=== PATIENT | female | born 1965 | race Asian ===

== ENCOUNTER 2016-10-26 15:14 | Outpatient (CLI) | payer OTHER, MEDICARE | END 2016-10-26 15:15 | disposition home or self-care (01) | DX: F31.9 Bipolar disorder, unspecified (principal); E11.9 Type 2 diabetes mellitus without complications ==

== ENCOUNTER 2016-12-28 15:12 | Outpatient (CLI) | payer OTHER, MEDICARE | END 2016-12-28 15:13 | disposition home or self-care (01) | DX: N18.9 Chronic kidney disease, unspecified (principal); I10 Essential (primary) hypertension ==

== ENCOUNTER 2017-10-07 08:00 | Outpatient (CLI) | payer OTHER, MEDICARE ==
[2017-10-07 18:54] LABS: CALCIUM 9.3 mg/dL (8.5-10.3); CREATININE 1.7 mg/dL (0.4-1.0); HEMOGLOBIN A1C 0.88 g/dL; POTASSIUM 4.3 mmol/L (3.5-5.0)
== END 2017-10-07 08:01 | disposition home or self-care (01) ==
LOC: LAB.S 08:00
PROVIDERS: ATTEND Family Medicine
DX: N18.9 Chronic kidney disease, unspecified (principal); I10 Essential (primary) hypertension; E11.9 Type 2 diabetes mellitus without complications
CPT/HCPCS: 36415; 80048; 83036

== ENCOUNTER 2018-05-07 12:42 | Outpatient (CLI) | payer MEDICARE ==
[2018-05-07 17:47] LABS: CREATININE 1.1 mg/dL (0.4-1.0)
[2018-05-07 17:49] LABS: CALCIUM 9.4 mg/dL (8.5-10.3)
[2018-05-07 18:26] LABS: HB2 TOTAL 14.9 g/dL; HEMOGLOBIN A1C 1.32 g/dL; HEMOGLOBIN A1C % 10.3 % (4.6-6.2)
== END 2018-05-07 12:43 | disposition home or self-care (01) ==
LOC: LAB.F 12:42
PROVIDERS: ATTEND Family Medicine
DX: E11.9 Type 2 diabetes mellitus without complications (principal); N18.9 Chronic kidney disease, unspecified; I10 Essential (primary) hypertension
CPT/HCPCS: 36415; 80048; 83036

== ENCOUNTER 2018-08-02 01:14 | Emergency (ER) | payer MEDICARE ==
--- NOTE | 2018-08-02 01:48 | ED Physician Documentation ---
PD HPI ABD PAIN - Stated complaint Stated Complaint: STOMACH PX - Chief complaint Chief Complaint: Abd Pain - History obtained from History obtained from: Patient - History of Present Illness Timing - onset: How many weeks ago (1) Timing - details: Gradual onset, Waxing and waning Pain level now: 4 Quality: Pain Location: Epigastric, LUQ Improved by: Other (no ameliorating factors) Worsened by: Other (no exacerbating factors) Associated symptoms: Nausea, Diarrhea. No: Fever, Vomiting Similar symptoms before: Has not had sx before Recently seen: Not recently seen Review of Systems Constitutional: reports: Fatigue. denies: Fever Cardiac: reports: Reviewed and negative Respiratory: reports: Reviewed and negative GI: reports: Abdominal Pain, Abdominal Swelling, Nausea, Diarrhea. denies: Vomiting : denies: Dysuria, Frequency PD PAST MEDICAL HISTORY - Past Medical History Past Medical History: Yes - Past Surgical History Past Surgical History: No - Present Medications Home Medications: Ambulatory Orders Medication Instructions Recorded Confirmed Diphenoxylate/Atropine [Lomotil] 1 each PO QID PRN #14 tablet 08/02/18 Hydrocodone/Acetaminophen 1 - 2 each PO Q6HR PRN #10 tablet 08/02/18 [Hydrocodon-Acetaminophen 5-325] Omeprazole 40 mg PO QDBREAKFAST #30 capsule. 08/02/18 - Allergies Allergies/Adverse Reactions: Allergies Allergy/AdvReac Type Severity Reaction Status Date / Time codeine Allergy Severe swelling Verified 08/02/18 01:30 rash - Living Situation Living Situation: reports: With spouse/s.o. Living Arrangement: reports: At home - Social History Does the pt smoke?: No PD ED PE NORMAL - General General: Alert and oriented X 3, No acute distress, Well developed/nourished - HEENT HEENT: Moist mucous membranes - Cardiac Cardiac: RRR, No murmur - Respiratory Respiratory: No respiratory distress, Clear bilaterally - Abdomen Abdomen: Soft, Non distended, Other (mild tenderness epigastrium, LLQ, RUQ) Results - Vitals Vitals: Vital Signs - 24 hr 08/02/18 08/02/18 01:18 04:38 Temperature 36.2 C L Heart Rate 77 76 Respiratory 17 16 Rate Blood Pressure 152/93 H 119/64 O2 Saturation 100 100 Oxygen O2 Source Room air - EKG (time done) No standard instances Rate: Rate (enter#) (76) Rhythm: NSR [place]: Normal Intervals: Normal DC QRS: Normal Ischemia: Normal ST segments, T wave inversion (V2-V3) - Labs Labs: Laboratory Tests 08/02/18 08/02/18 08/02/18 02:46 02:55 02:55 WBC 11.9 H RBC 4.81 Hgb 14.1 Hct 42.5 MCV 88.5 MCH 29.3 MCHC 33.1 RDW 13.5 Plt Count 294 MPV 8.6 Neut # (Auto) 7.5 H Lymph # (Auto) 3.2 [place] # (Auto) 1.0 Eos # (Auto) 0.2 Baso # (Auto) 0.1 Absolute Nucleated RBC 0.01 Nucleated RBC % 0.1 Sodium 138 Potassium 4.0 Chloride 103 Carbon Dioxide 24 Anion Gap 11.0 BUN 17 Creatinine 1.1 H Estimated GFR (MDRD) 52 L Glucose 107 H Calcium 9.2 Total Bilirubin 0.4 AST 30 ALT 33 Alkaline Phosphatase 75 Total Protein 8.5 H Albumin 4.3 Globulin 4.2 Albumin/Globulin Ratio 1.0 Lipase 99 H Urine Color YELLOW Urine Clarity CLEAR Urine pH 6.0 Ur Specific [place] <=1.005 Urine Protein NEGATIVE Urine Glucose (UA) NEGATIVE Urine Ketones NEGATIVE Urine Occult Blood NEGATIVE Urine Nitrite NEGATIVE Urine Bilirubin NEGATIVE Urine Urobilinogen 0.2 (NORMAL) Ur Leukocyte Esterase NEGATIVE Ur Microscopic Review NOT INDICATED Urine Culture Comments NOT INDICATED - Rads (name of study) CT A/P Radiology: Prelim report reviewed, See rad report PD MEDICAL DECISION MAKING - ED course Complexity details: reviewed results, re-evaluated patient, considered differential, d/w patient Departure - Departure Disposition: 01 Home, Self Care Clinical Impression: Diarrhea, Abdominal pain Condition: Good Instructions: ED Abdominal Pain Unkn Cause, ED Diarrhea Viral Prescriptions: Hydrocodone/Acetaminophen [Hydrocodon-Acetaminophen 5-325] 1 - 2 each PO Q6HR PRN #10 tablet PRN Reason: Pain Diphenoxylate/Atropine [Lomotil] 1 each PO QID PRN #14 tablet PRN Reason: Diarrhea Omeprazole 40 mg PO QDBREAKFAST #30 capsule. Discharge Date/Time: 08/02/18 05:27
[2018-08-02] MEDS ORDERED: SODIUM CHLORIDE 0.9% 1,000 ML IV STA (02:29)
[2018-08-02] MEDS ORDERED: KETOROLAC 30 MG/ML VIAL IVP STA (02:29)
[2018-08-02 03:11] LABS: BASOPHILS # (AUTO) 0.1 10^3/uL (0.0-0.1); BASOPHILS % (AUTO) 0.6 %; EOSINOPHILS # (AUTO) 0.2 10^3/uL (0.0-0.7); EOSINOPHILS % (AUTO) 1.7 %; HGB - HEMOGLOBIN 14.1 g/dL (12.0-16.0); LYMPHOCYTES # (AUTO) 3.2 10^3/uL (1.5-3.5); LYMPHOCYTES % (AUTO) 27.2 %; MEAN CORPUSCULAR HEMOGLOBIN 29.3 pg (27.0-31.0); MEAN CORPUSCULAR HGB CONC 33.1 g/dL (32.0-36.0); MEAN CORPUSCULAR VOLUME 88.5 fL (81.0-99.0); MEAN PLATELET VOLUME 8.6 fL (7.9-10.8); NEUTROPHILS # (AUTO) 7.5 10^3/uL (1.5-6.6); NEUTROPHILS % (AUTO) 62.5 %; PLT - PLATELET COUNT 294 10^3/uL (130-450); RED BLOOD COUNT 4.81 10^6/uL (4.20-5.40); RED CELL DISTRIBUTION WIDTH 13.5 % (12.0-15.0); WHITE BLOOD COUNT 11.9 x10^3/uL (4.8-10.8)
[2018-08-02 03:19] LABS: BILIRUBIN,URINE NEGATIVE (NEGATIVE); GLUCOSE, URINE (UA) NEGATIVE (NEGATIVE); KETONES,URINE (UA) NEGATIVE (NEGATIVE); LEUKOCYTE ESTERASE, URINE NEGATIVE (NEGATIVE); NITRITE,URINE NEGATIVE (NEGATIVE); OCCULT BLOOD,URINE NEGATIVE (NEGATIVE); PROTEIN,URINE NEGATIVE (NEGATIVE); UROBILINOGEN,URINE 0.2 (NORMAL) E.U./dL (NORMAL)
[2018-08-02 03:21] LABS: ALBUMIN 4.3 g/dL (3.2-5.5); BILIRUBIN,TOTAL 0.4 mg/dL (0.2-1.0); CALCIUM 9.2 mg/dL (8.5-10.3); CREATININE 1.1 mg/dL (0.4-1.0); TOTAL PROTEIN 8.5 g/dL (6.7-8.2)
[2018-08-02 03:34] LABS: CLARITY,URINE CLEAR (CLEAR)
[2018-08-02] MEDS ORDERED: IOPAMIDOL-300 100 ML VIAL ONE (03:41)
[2018-08-02] MEDS ORDERED: IOPAMIDOL-300 100 ML VIAL IVP ONE (03:58)
--- NOTE | 2018-08-02 04:20 | CT Report ---
Reason: abd. pain Procedure Date: 08/02/2018 Accession Number: [id number] / [id number] Procedure: CT - Abdomen/Pelvis W/ CPT Code: FULL RESULT: EXAM: CT ABDOMEN AND PELVIS EXAM DATE: 08/02/2018 04:09 AM. CLINICAL HISTORY: Abdominal pain. COMPARISONS: None. TECHNIQUE: Routine helical CT imaging was performed through the abdomen and pelvis. IV contrast: ISOVUE 300 100mL. Enteric contrast: No. Reconstructions: Coronal and sagittal. In accordance with CT protocol optimization, one or more of the following dose reduction techniques were utilized for this exam: automated exposure control, adjustment of mA and/or KV based on patient size, or use of iterative reconstructive technique. FINDINGS: Lung Bases: Unremarkable. Liver: There is mild diffuse fatty infiltration of the liver. Gallbladder/Bile Ducts: Unremarkable. Spleen: Normal. Pancreas: Normal. Adrenal Glands: Normal. Kidneys: Normal. No masses or hydronephrosis. Peritoneal Cavity/Bowel: Normal. No free fluid, free air or adenopathy. No masses or acute inflammatory process. The stomach is unremarkable. There is no distention of the small bowel. Pelvic Organs: Normal. The bladder and visualized pelvic organs are within normal limits. Vasculature: No aneurysms or other significant abnormality. Bones: No significant abnormality. Other: The uterus is anteverted. There are no adnexal masses. There are no inflammatory changes of the colon. The appendix is normal. IMPRESSION: 1. Negative CT scan abdomen and pelvis. No findings to explain clinical symptoms. No evidence for renal calculi. No evidence for appendicitis. [facility]
[2018-08-02 04:39] VITALS: BP 119/64
[2018-08-02] MEDS ORDERED: DIPHENOX/ATROPINE 2.5/0.025 MG TABLET PO STA (05:02)
[2018-08-02] MEDS ORDERED: PANTOPRAZOLE 40 MG TABLET PO STA (05:03)
== END 2018-08-02 05:27 | disposition home or self-care (01) ==
LOC: ED 01:14
DX: R19.7 Diarrhea, unspecified (principal); R10.13 Epigastric pain; R10.32 Left lower quadrant pain; R10.11 Right upper quadrant pain
CPT/HCPCS: 74177; 80053; 81003; 83690; 85025; 93005; 96374; 99283; Q9967; 36415; 81001; 87086

== ENCOUNTER 2018-09-22 15:16 | Outpatient (CLI) | payer MEDICARE ==
[2018-09-22 18:18] LABS: BASOPHILS % (AUTO) 0.2 %; EOSINOPHILS # (AUTO) 0.2 10^3/uL (0.0-0.7); EOSINOPHILS % (AUTO) 2.4 %; HGB - HEMOGLOBIN 14.2 g/dL (12.0-16.0); LYMPHOCYTES # (AUTO) 3.3 10^3/uL (1.5-3.5); LYMPHOCYTES % (AUTO) 37.1 %; MEAN CORPUSCULAR HEMOGLOBIN 28.9 pg (27.0-31.0); MEAN CORPUSCULAR HGB CONC 32.2 g/dL (32.0-36.0); MEAN CORPUSCULAR VOLUME 89.6 fL (81.0-99.0); MEAN PLATELET VOLUME 9.4 fL (7.9-10.8); MONOCYTES # (AUTO) 0.6 10^3/uL (0.0-1.0); MONOCYTES % (AUTO) 7.1 %; NEUTROPHILS # (AUTO) 4.8 10^3/uL (1.5-6.6); NEUTROPHILS % (AUTO) 53.2 %; PLT - PLATELET COUNT 299 10^3/uL (130-450); RED BLOOD COUNT 4.91 10^6/uL (4.20-5.40); RED CELL DISTRIBUTION WIDTH 13.1 % (12.0-15.0)
[2018-09-22 18:25] LABS: ALBUMIN/GLOBULIN RATIO 1.1 (1.0-2.2); ALKALINE PHOSPHATASE 78 IU/L (42-121); ALT ALANINE AMINOTRANSFERASE 28 IU/L (10-60); AST ASPARTATE AMINOTRANSFERASE 26 IU/L (10-42); BILIRUBIN,TOTAL 0.6 mg/dL (0.2-1.0); BUN - BLOOD UREA NITROGEN 22 mg/dL (6-20); CALCIUM 9.2 mg/dL (8.5-10.3); CARBON DIOXIDE - CO2 26 mmol/L (21-32); CHLORIDE 99 mmol/L (101-111); CHOL/HDL RATIO 7.2 (<4.4); CHOLESTEROL 331 mg/dL; CREATININE 1.1 mg/dL (0.4-1.0); GFR - MDRD 52 (>89); GLUCOSE 263 mg/dL (70-100); HDL CHOLESTEROL 46 mg/dL; SODIUM 132 mmol/L (135-145); TOTAL PROTEIN 7.8 g/dL (6.7-8.2)
[2018-09-22 18:46] LABS: LDL CHOLESTEROL,DIRECT 110 mg/dL; LDLD/HDL RATIO 2.4 (<4.4)
[2018-09-22 21:20] LABS: HB2 TOTAL 15.6 g/dL; HEMOGLOBIN A1C 1.14 g/dL; HEMOGLOBIN A1C % 8.8 % (4.6-6.2)
== END 2018-09-22 15:17 | disposition home or self-care (01) ==
LOC: LAB.F 15:16
PROVIDERS: ATTEND Family Medicine
DX: I10 Essential (primary) hypertension (principal); E11.9 Type 2 diabetes mellitus without complications; E78.5 Hyperlipidemia, unspecified; F32.9 Major depressive disorder, single episode, unspecified
CPT/HCPCS: 36415; 80053; 80061; 82043; 83036; 83721; 84443; 85025

== ENCOUNTER 2019-01-28 13:48 | Outpatient (CLI) | payer MEDICARE ==
[2019-01-28 18:31] LABS: BASOPHILS # (AUTO) 0.1 10^3/uL (0.0-0.1); BASOPHILS % (AUTO) 0.9 %; EOSINOPHILS # (AUTO) 0.2 10^3/uL (0.0-0.7); EOSINOPHILS % (AUTO) 2.4 %; HGB - HEMOGLOBIN 13.1 g/dL (12.0-16.0); LYMPHOCYTES # (AUTO) 2.3 10^3/uL (1.5-3.5); LYMPHOCYTES % (AUTO) 32.2 %; MEAN CORPUSCULAR HEMOGLOBIN 28.6 pg (27.0-31.0); MEAN CORPUSCULAR HGB CONC 31.7 g/dL (32.0-36.0); MEAN CORPUSCULAR VOLUME 90.1 fL (81.0-99.0); MEAN PLATELET VOLUME 9.3 fL (7.9-10.8); MONOCYTES # (AUTO) 0.6 10^3/uL (0.0-1.0); MONOCYTES % (AUTO) 8.2 %; NEUTROPHILS % (AUTO) 56.3 %; PLT - PLATELET COUNT 360 10^3/uL (130-450); RED BLOOD COUNT 4.58 10^6/uL (4.20-5.40); RED CELL DISTRIBUTION WIDTH 13.6 % (12.0-15.0); WHITE BLOOD COUNT 7.2 x10^3/uL (4.8-10.8)
[2019-01-28 18:33] LABS: ALKALINE PHOSPHATASE 56 IU/L (42-121); ALT ALANINE AMINOTRANSFERASE 19 IU/L (10-60); AST ASPARTATE AMINOTRANSFERASE 21 IU/L (10-42); BILIRUBIN,TOTAL 0.7 mg/dL (0.2-1.0); BUN - BLOOD UREA NITROGEN 21 mg/dL (6-20); CALCIUM 8.9 mg/dL (8.5-10.3); CARBON DIOXIDE - CO2 27 mmol/L (21-32); CHLORIDE 104 mmol/L (101-111); CHOL/HDL RATIO 3.4 (<4.4); CHOLESTEROL 187 mg/dL; GFR - MDRD 58 (>89); GLUCOSE 120 mg/dL (70-100); HDL CHOLESTEROL 55 mg/dL; LDL CHOLESTEROL,CALCULATED 98 mg/dL; LDL/HDL RATIO 1.8 (<4.4); SODIUM 138 mmol/L (135-145); TOTAL PROTEIN 7.9 g/dL (6.7-8.2); VLDL CHOLESTEROL 34 mg/dL
[2019-01-28 18:50] LABS: HB2 TOTAL 14.2 g/dL; HEMOGLOBIN A1C 1.34 g/dL; HEMOGLOBIN A1C % 10.8 % (4.6-6.2)
== END 2019-01-28 13:49 | disposition home or self-care (01) ==
LOC: LAB.F 13:48
PROVIDERS: ATTEND Family Medicine
DX: I10 Essential (primary) hypertension (principal); E78.5 Hyperlipidemia, unspecified; E11.9 Type 2 diabetes mellitus without complications; F32.9 Major depressive disorder, single episode, unspecified
CPT/HCPCS: 36415; 80053; 80061; 82043; 83036; 83721; 84443; 85025

== ENCOUNTER 2019-05-21 | Outpatient (CLI) | payer MEDICARE | END 2019-05-21 23:59 | disposition home or self-care (01) | DX: E78.5 Hyperlipidemia, unspecified (principal); E11.9 Type 2 diabetes mellitus without complications; I10 Essential (primary) hypertension | CPT/HCPCS: 36415; 80053; 80061; 83036; 83721; 85025 ==

== ENCOUNTER 2020-01-14 17:12 | Outpatient (CLI) | payer MEDICARE | END 2020-01-14 17:13 | disposition home or self-care (01) | LOC: COV 17:12 | PROVIDERS: ATTEND Family Medicine | DX: R05 Cough (principal); R50.9 Fever, unspecified ==

== ENCOUNTER 2020-04-27 08:00 | Outpatient (CLI) | payer MEDICARE ==
[2020-04-27 18:43] LABS: BASOPHILS # (AUTO) 0.1 10^3/uL (0.0-0.1); BASOPHILS % (AUTO) 0.8 %; EOSINOPHILS # (AUTO) 0.2 10^3/uL (0.0-0.7); EOSINOPHILS % (AUTO) 2.2 %; LYMPHOCYTES # (AUTO) 2.8 10^3/uL (1.5-3.5); LYMPHOCYTES % (AUTO) 31.2 %; MEAN CORPUSCULAR HEMOGLOBIN 27.4 pg (27.0-31.0); MEAN CORPUSCULAR HGB CONC 31.6 g/dL (32.0-36.0); MEAN CORPUSCULAR VOLUME 86.7 fL (81.0-99.0); MEAN PLATELET VOLUME 10.5 fL (7.9-10.8); MONOCYTES # (AUTO) 0.5 10^3/uL (0.0-1.0); NEUTROPHILS # (AUTO) 5.4 10^3/uL (1.5-6.6); NEUTROPHILS % (AUTO) 59.5 %; PLT - PLATELET COUNT 392 10^3/uL (130-450); RED BLOOD COUNT 4.75 10^6/uL (4.20-5.40); WHITE BLOOD COUNT 9.1 x10^3/uL (4.8-10.8)
[2020-04-27 19:17] LABS: ALBUMIN 4.9 g/dL (3.2-5.5); ALBUMIN/GLOBULIN RATIO 1.3 (1.0-2.2); ALKALINE PHOSPHATASE 55 IU/L (42-121); ALT ALANINE AMINOTRANSFERASE 15 IU/L (10-60); AST ASPARTATE AMINOTRANSFERASE 16 IU/L (10-42); BILIRUBIN,TOTAL 0.6 mg/dL (0.2-1.0); BUN - BLOOD UREA NITROGEN 34 mg/dL (6-20); CALCIUM 9.9 mg/dL (8.5-10.3); CARBON DIOXIDE - CO2 25 mmol/L (21-32); CHLORIDE 96 mmol/L (101-111); CHOL/HDL RATIO 4.7 (<4.4); CHOLESTEROL 276 mg/dL; CREATININE 1.3 mg/dL (0.4-1.0); GLUCOSE 445 mg/dL (70-100); HDL CHOLESTEROL 59 mg/dL; LDL CHOLESTEROL,CALCULATED 158 mg/dL; LDL/HDL RATIO 2.7 (<4.4); SODIUM 132 mmol/L (135-145); TOTAL PROTEIN 8.8 g/dL (6.7-8.2); VLDL CHOLESTEROL 59 mg/dL
[2020-04-27 19:24] LABS: HB2 TOTAL 14.2 g/dL; HEMOGLOBIN A1C 1.73 g/dL; HEMOGLOBIN A1C % 13.3 % (4.6-6.2)
== END 2020-04-27 23:59 | disposition home or self-care (01) ==
LOC: LAB.WCP 08:00
PROVIDERS: ATTEND Family Medicine
DX: E11.9 Type 2 diabetes mellitus without complications (principal)
CPT/HCPCS: 36415; 80053; 80061; 82043; 82570; 83036; 83721; 84443; 85025

== ENCOUNTER 2020-08-25 08:00 | Outpatient (CLI) | payer MEDICARE ==
[2020-08-25 18:48] LABS: BASOPHILS # (AUTO) 0.1 10^3/uL (0.0-0.1); BASOPHILS % (AUTO) 0.7 %; EOSINOPHILS # (AUTO) 0.1 10^3/uL (0.0-0.7); EOSINOPHILS % (AUTO) 0.7 %; HGB - HEMOGLOBIN 13.3 g/dL (12.0-16.0); LYMPHOCYTES # (AUTO) 2.4 10^3/uL (1.5-3.5); LYMPHOCYTES % (AUTO) 26.4 %; MEAN CORPUSCULAR HEMOGLOBIN 27.9 pg (27.0-31.0); MEAN CORPUSCULAR HGB CONC 31.3 g/dL (32.0-36.0); MEAN CORPUSCULAR VOLUME 89.1 fL (81.0-99.0); MEAN PLATELET VOLUME 11.1 fL (7.9-10.8); MONOCYTES # (AUTO) 0.6 10^3/uL (0.0-1.0); MONOCYTES % (AUTO) 6.6 %; NEUTROPHILS # (AUTO) 5.9 10^3/uL (1.5-6.6); PLT - PLATELET COUNT 380 10^3/uL (130-450); RED BLOOD COUNT 4.77 10^6/uL (4.20-5.40); RED CELL DISTRIBUTION WIDTH 12.3 % (12.0-15.0)
[2020-08-25 19:11] LABS: ALBUMIN 3.9 g/dL (3.2-5.5); ALBUMIN/GLOBULIN RATIO 0.9 (1.0-2.2); ALKALINE PHOSPHATASE 89 IU/L (42-121); ALT ALANINE AMINOTRANSFERASE 18 IU/L (10-60); AST ASPARTATE AMINOTRANSFERASE 18 IU/L (10-42); BILIRUBIN,TOTAL 0.9 mg/dL (0.2-1.0); BUN - BLOOD UREA NITROGEN 26 mg/dL (6-20); CALCIUM 9.2 mg/dL (8.5-10.3); CARBON DIOXIDE - CO2 26 mmol/L (21-32); CHLORIDE 81 mmol/L (101-111); CHOL/HDL RATIO 4.7 (<4.4); CHOLESTEROL 222 mg/dL; CREATININE 1.6 mg/dL (0.4-1.0); HDL CHOLESTEROL 47 mg/dL; TOTAL PROTEIN 8.1 g/dL (6.7-8.2)
[2020-08-25 19:20] LABS: FERRITIN 601.2 ng/mL (11.0-306.8)
[2020-08-25 19:46] LABS: LDL CHOLESTEROL,DIRECT 76 mg/dL; LDLD/HDL RATIO 1.6 (<4.4)
[2020-08-25 20:02] LABS: SODIUM 117 mmol/L (135-145)
[2020-08-25 20:03] LABS: GLUCOSE 958 mg/dL (70-100)
== END 2020-08-25 23:59 | disposition home or self-care (01) ==
LOC: LAB.WCP 08:00
PROVIDERS: ATTEND Family Medicine
DX: E11.65 Type 2 diabetes mellitus with hyperglycemia (principal); L65.9 Nonscarring hair loss, unspecified
CPT/HCPCS: 36415; 80053; 80061; 81599; 82728; 83036; 83721; 84443; 85025

== ENCOUNTER 2020-09-26 08:00 | Outpatient (CLI) | payer MEDICARE ==
[2020-09-26 20:28] LABS: ALBUMIN 4.2 g/dL (3.2-5.5); BILIRUBIN,TOTAL 0.9 mg/dL (0.2-1.0); CALCIUM 9.8 mg/dL (8.5-10.3); CREATININE 1.3 mg/dL (0.4-1.0); POTASSIUM 4.6 mmol/L (3.5-5.0); TOTAL PROTEIN 8.6 g/dL (6.7-8.2)
[2020-09-26 21:04] LABS: ESTIMATED AVERAGE GLUCOSE 387 mg/dL (70-100); HEMOGLOBIN A1c% 15.1 % (4.27-6.07)
== END 2020-09-26 23:59 | disposition home or self-care (01) ==
LOC: LAB.WCP 08:00
PROVIDERS: ATTEND Family Medicine
DX: E87.5 Hyperkalemia (principal); E11.65 Type 2 diabetes mellitus with hyperglycemia
CPT/HCPCS: 36415; 80053; 83036

== ENCOUNTER 2020-12-26 08:00 | Outpatient (CLI) | payer OTHER, MEDICARE ==
[2020-12-26 18:27] LABS: BASOPHILS # (AUTO) 0.1 10^3/uL (0.0-0.1); BASOPHILS % (AUTO) 0.9 %; EOSINOPHILS # (AUTO) 0.2 10^3/uL (0.0-0.7); HCT - HEMATOCRIT 39.9 % (37.0-47.0); HGB - HEMOGLOBIN 12.7 g/dL (12.0-16.0); LYMPHOCYTES # (AUTO) 3.1 10^3/uL (1.5-3.5); LYMPHOCYTES % (AUTO) 36.2 %; MEAN CORPUSCULAR HEMOGLOBIN 28.5 pg (27.0-31.0); MEAN CORPUSCULAR HGB CONC 31.8 g/dL (32.0-36.0); MEAN CORPUSCULAR VOLUME 89.5 fL (81.0-99.0); MEAN PLATELET VOLUME 11.5 fL (7.9-10.8); MONOCYTES # (AUTO) 0.7 10^3/uL (0.0-1.0); MONOCYTES % (AUTO) 8.4 %; NEUTROPHILS # (AUTO) 4.4 10^3/uL (1.5-6.6); PLT - PLATELET COUNT 349 10^3/uL (130-450); RED BLOOD COUNT 4.46 10^6/uL (4.20-5.40); RED CELL DISTRIBUTION WIDTH 12.4 % (12.0-15.0); WHITE BLOOD COUNT 8.5 x10^3/uL (4.8-10.8)
[2020-12-26 18:56] LABS: THYROID STIMULATING HORMONE 3.08 uIU/mL (0.34-5.60)
[2020-12-26 19:02] LABS: FERRITIN 563.2 ng/mL (11.0-306.8)
[2020-12-26 19:05] LABS: % IRON SATURATION 25 % (20-50); ALBUMIN 3.9 g/dL (3.2-5.5); ALKALINE PHOSPHATASE 74 IU/L (42-121); ALT ALANINE AMINOTRANSFERASE 17 IU/L (10-60); AST ASPARTATE AMINOTRANSFERASE 18 IU/L (10-42); BILIRUBIN,TOTAL 0.8 mg/dL (0.2-1.0); BUN - BLOOD UREA NITROGEN 27 mg/dL (6-20); CALCIUM 9.5 mg/dL (8.5-10.3); CARBON DIOXIDE - CO2 23 mmol/L (21-32); CHLORIDE 89 mmol/L (101-111); CHOL/HDL RATIO 3.9 (<4.4); CHOLESTEROL 228 mg/dL; CREATININE 1.4 mg/dL (0.4-1.0); GFR - MDRD 39 (>89); HDL CHOLESTEROL 59 mg/dL; IRON 108 ug/dL (28-170); LDL CHOLESTEROL,CALCULATED 91 mg/dL; LDL/HDL RATIO 1.5 (<4.4); POTASSIUM 4.7 mmol/L (3.5-5.0); SODIUM 124 mmol/L (135-145); TOTAL IRON BINDING CAPACITY 427 ug/dL (250-450); TOTAL PROTEIN 7.9 g/dL (6.7-8.2); TRANSFERRIN 305 mg/dL (192-382); TRIGLYCERIDES 391 mg/dL; VLDL CHOLESTEROL 78 mg/dL
[2020-12-26 20:31] LABS: GLUCOSE 899 mg/dL (70-100)
[2020-12-26 21:06] LABS: ESTIMATED AVERAGE GLUCOSE 444 mg/dL (70-100); HEMOGLOBIN A1c% 17.1 % (4.27-6.07)
== END 2020-12-26 23:59 | disposition home or self-care (01) ==
LOC: LAB.WCP 08:00
PROVIDERS: ATTEND Family Medicine
DX: E11.8 Type 2 diabetes mellitus with unspecified complications (principal); L65.9 Nonscarring hair loss, unspecified
CPT/HCPCS: 36415; 80053; 80061; 82043; 82570; 82728; 83036; 83540; 83721; 84443; 84466; 85025; 86592

== ENCOUNTER 2024-04-23 13:35 | Outpatient (CLI) | payer MEDICARE, OTHER | END 2024-04-23 13:36 | disposition EMS.NT | LOC: EMS 13:35 | DX: R46.89 Other symptoms and signs involving appearance and behavior (principal) ==